=== PATIENT | female | born 1995 | race Caucasian/White ===

== ENCOUNTER 2024-07-30 17:57 | Emergency (ER) | payer OTHER, MEDICAID ==
[~2024-07-30] VITALS: Ht 165.1 cm; Wt 50.3 kg
[2024-07-30] MEDS ORDERED: IBUPROFEN 600 MG TABLET ONE (18:06)
[2024-07-30] MEDS: IBUPROFEN 600 MG TABLET PO ONE (18:10)
[2024-07-30 19:31] VITALS: BP 115/72; TEMP 98.2; O2SAT 97
== END 2024-07-30 19:30 | disposition home or self-care (01) ==
LOC: ER 17:57
DX: R07.89 Other chest pain (principal); R05.9 Cough, unspecified; F17.200 Nicotine dependence, unspecified, uncomplicated
CPT/HCPCS: 71045-TC